=== PATIENT | male | born 1960 | race Caucasian/White ===

== ENCOUNTER 2016-08-31 11:50 | Emergency (ER) | payer BC ==
[2016-08-31 12:04] VITALS: BP 152/82
--- NOTE | 2016-09-02 00:59 | UC ---
UC General HPI - HPI Summary HPI Summary: 56 y/o male presents to the urgent care c/o joint pains, HEWITT, fatigue for the past 10 days. Pt is concerned about Lyme disease since he has been exposed to ticks in the past. Pt request the Lyme serology. Pt denies fever, rash, SOB, chest pain, dizziness, N/V/D. Pt has not other complains. - History of Current Complaint Hx Obtained From: Patient Onset/Duration: Gradual Onset, Lasting Days, Still Present Timing: Constant Onset Severity: Mild Current Severity: Moderate Pain Intensity: 4 - headache Associated Signs & Symptoms: Positive: Weakness, Other - joint pains <Andressa Rico - Last Filed: 09/02/16 00:54> <Elis Emmanuel - Last Filed: 09/02/16 07:31> - History of Current Complaint Chief Complaint: UCGeneralIllness Stated Complaint: FATIQUE ARMS/LEGS TINGLE Time Seen by Provider: 08/31/16 13:00 - Allergy/Home Medications Allergies/Adverse Reactions: Allergies Allergy/AdvReac Type Severity Reaction Status Date / Time No Known Allergies Allergy Verified 08/31/16 12:00 Home Medications: Home Medications Levothyroxine TAB* [Synthroid TAB*] 175 mcg PO 0600 08/31/16 [History Confirmed 08/31/16] PMH/Surg Hx/FS Hx/Imm Hx Endocrine History: Diabetes, Hypothyroidism - Surgical History Surgical History: None - Family History Known Family History: Positive: None - Social History Occupation: Employed Full-time Lives: With Family Alcohol Use: None Substance Use Type: None Smoking Status (MU): Never Smoked Tobacco <Andressa Rico - Last Filed: 09/02/16 00:54> Review of Systems Constitutional: Fatigue Skin: Negative Eyes: Negative ENT: Negative Respiratory: Negative Cardiovascular: Negative Gastrointestinal: Negative Genitourinary: Negative Motor: Negative Neurovascular: Negative Musculoskeletal: Arthralgia Neurological: Headache Psychological: Negative All Other Systems Reviewed And Are Negative: Yes <Andressa Rico - Last Filed: 09/02/16 00:54> Physical Exam Triage Information Reviewed: Yes Appearance: Well-Appearing, No Pain Distress, Well-Nourished Vital Signs: Initial Vital Signs Temp 98.5 F 08/31/16 12:00 Pulse 83 07/26/17 12:00 Resp 16 08/31/16 12:00 BP 152/82 08/31/16 12:00 Pulse Ox 98 08/31/16 12:00 Vital Signs Reviewed: Yes Eye Exam: Normal Eyes: Positive: Conjunctiva Clear - PERLLA, EOMI, fundi grossly normal ENT Exam: Normal ENT: Positive: Normal ENT inspection, Hearing grossly normal, Pharynx normal, TMs normal Dental Exam: Normal Neck exam: Normal Neck: Positive: Supple, Nontender, No Lymphadenopathy Respiratory Exam: Normal Respiratory: Positive: Chest non-tender, Lungs clear, Normal breath sounds Cardiovascular Exam: Normal Cardiovascular: Positive: RRR, No Murmur, Pulses Normal, Brisk Capillary Refill Abdominal Exam: Normal Abdomen Description: Positive: Nontender, No Organomegaly, Soft. Negative: CVA Tenderness (R), CVA Tenderness (L) Bowel Sounds: Positive: Present Musculoskeletal Exam: Normal Musculoskeletal: Positive: Strength Intact, ROM Intact, No Edema Neurological Exam: Normal Psychological Exam: Normal Skin Exam: Normal <Andressa Rico - Last Filed: 09/02/16 00:54> Vital Signs: Initial Vital Signs Temp 98.5 F 08/31/16 12:00 Pulse 83 08/31/16 12:00 Resp 16 08/31/16 12:00 BP 152/82 08/31/16 12:00 Pulse Ox 98 08/31/16 12:00 <Elis Emmaunel - Last Filed: 09/02/16 07:31> Course/Dx - Course Course Of Treatment: 56 y/o male presents to the urgent care c/o joint pains, HEWITT , fatigue for the past 10 days. Pt is concerned about Lyme disease since he has been exposed to ticks in the past. Pt request the Lyme serology. Pt denies fever, rash, SOB, chest pain, dizziness, N/V/D. Hx Obtained. PE WNL. Pt doesn't recall any rash recently, but has been wxposed to tick bite in the past. Pt advised that at the onset of lyme disease there is posibility of negative results in the serology. However Pt requested the test and the treatmetn. Pt Rx Doxycycline PO. Lyme Serology ordered. Pt's BP is elevated w/o Hx of HTN, advised to decrease salt in his diet. Pt advised to f/u with PCP for further evaluation and treatment. - Differential Dx - Multi-Symptom Provider Diagnoses: 1-Headache, arthralgias. 2- Elevated blood pressure w/o Hx of HTN <Andressa Rico - Last Filed: 09/02/16 00:54> Discharge <Andressa Rico - Last Filed: 09/02/16 00:54> <Elis Emmanuel - Last Filed: 09/02/16 07:31> - Discharge Plan Condition: Stable Disposition: HOME Prescriptions: DOXYcycline CAP(*) [DOXYcycline 100MG CAP(*)] 100 mg PO BID #42 cap Patient Education Materials: Lyme Disease (ED), Low Sodium Diet (ED) Referrals: Javid SOLARES,Sathish Francois [Medical Doctor] - If Needed Josue SOLARES,Bj Martinez [Primary Care Provider] - 1 Week Additional Instructions: Please take full course of the antibiotic even though the Lyme serology returns negative. Please f/u with your PCP in 1 week for further evaluation and treatment. If Lyme serology is positive please f/u with Dr Hua who specializes in Lyme Disease. Attestation Statement User Type: Provider Provider Attestation: I was available for consult. This patient was seen by the advanced practice provider. The patient was not presented to, seen by, or examined by me.-Keiko <Elis Emmanuel - Last Filed: 09/02/16 07:31>
== END 2016-08-31 13:29 | disposition home or self-care (01) ==
LOC: UCEAST 11:50
DX: R51 Headache (principal); M25.50 Pain in unspecified joint; R53.1 Weakness; R03.0 Elevated blood-pressure reading, without diagnosis of hypertension; E11.9 Type 2 diabetes mellitus without complications; E03.9 Hypothyroidism, unspecified
CPT/HCPCS: 86618; 99212; G0463